=== PATIENT | male | born 1935 | race Caucasian/White ===

== ENCOUNTER → 2016-06-03 | Outpatient (CLI) | payer OTHER | LOC: BHFA 13:15 | PROVIDERS: ATTEND Internal Medicine | DX: I48.91 Unspecified atrial fibrillation (principal); I10 Essential (primary) hypertension ==

== ENCOUNTER → 2016-06-10 | Outpatient (CLI) | payer OTHER | LOC: FCPNEURO 21:00 | PROVIDERS: ATTEND Psychiatry & Neurology Sleep Medicine | DX: G47.33 Obstructive sleep apnea (adult) (pediatric) (principal) ==

== ENCOUNTER → 2016-07-12 | Outpatient (CLI) | payer OTHER | LOC: FCPNEURO 21:30 | PROVIDERS: ATTEND Psychiatry & Neurology Sleep Medicine | DX: G47.33 Obstructive sleep apnea (adult) (pediatric) (principal); G47.39 Other sleep apnea ==

== ENCOUNTER → 2018-04-30 | Outpatient (CLI) | payer OTHER | LOC: FIMAGING 14:41 | PROVIDERS: ATTEND Internal Medicine Cardiovascular Disease | DX: I48.91 Unspecified atrial fibrillation (principal); R06.02 Shortness of breath; I50.9 Heart failure, unspecified ==

== ENCOUNTER 2018-05-03 06:08 | Day surgery (SDC) | payer OTHER ==
[2018-05-03] MEDS ORDERED: diphenhydrAMINE 25 MG CAP PO ONE (06:13)
[2018-05-03] MEDS ORDERED: ASPIRIN EC 325 MG TAB PO ONE (06:13)
[2018-05-03] MEDS ORDERED: NS 1,000 ML IV ONE (06:13)
[2018-05-03] MEDS ORDERED: DIAZEPAM 5 MG TAB PO ONE (06:13)
[2018-05-03] MEDS ORDERED: FAMOTIDINE 20 MG TAB PO ONE (06:13)
[2018-05-03] MEDS ORDERED: LIDOCAINE 1% 300 MG/30 ML SDV ONE (06:52)
[2018-05-03] MEDS ORDERED: fentaNYL 100 MCG/2 ML INJ ONE (06:52)
[2018-05-03] MEDS ORDERED: IOPAMIDOL (ISOVUE-370) 150 ML BTL IV ONE (06:52)
[2018-05-03] MEDS ORDERED: METOPROLOL TARTRATE 5 MG/5 ML INJ ONE (06:52)
[2018-05-03] MEDS ORDERED: MIDAZOLAM 2 MG/2 ML VIAL ONE (06:52)
[2018-05-03] MEDS ORDERED: CLOPIDOGREL BISULFATE 75 MG TAB ONE (06:53)
[2018-05-03 06:56] LABS: INR 1.24 (0.83-1.16); PROTIME(PATIENT) 15.8 SEC (12.0-15.0)
[2018-05-03] MEDS ORDERED: CLOPIDOGREL BISULFATE 75 MG TAB PO ONE (07:00)
[2018-05-03 07:03] VITALS: BP 171/104
--- NOTE | 2018-05-03 07:08 | PDPROPOC ---
Sedation Plan of Care Sedation Plan of Care: mental status noted, patient educated of risks, benefits , alternatives, patient can tolerate sedation ASA Classification: ASA 2 Planned drugs: fentanyl, midazolam Mallampati Score: Class 1 Mallampati Reference Image: Patient passed 3-3-2 rule?: Yes
--- NOTE | 2018-05-03 07:09 | PDHPUP ---
History & Physical Update H&P update statement: This history and physical update is based on an assessment of the patient which was completed after admission or registration (within 24 hours), but prior to the surgery/procedure. H&P update: H&P reviewed & patient examined, no change in patient's condition since H&P completed
[2018-05-03 07:12] LABS: PLATELET COUNT 113 10^3/uL (150-400)
[2018-05-03] MEDS ORDERED: METOPROLOL TARTRATE 5 MG/5 ML INJ IV ONE (07:15)
[2018-05-03] MEDS ORDERED: hydrALAZINE 20 MG/ML VIAL ONE (07:24)
[2018-05-03] MEDS ORDERED: BIVALIRUDIN 250 MG/5 ML VIAL IV ONE (07:50)
[2018-05-03] MEDS ORDERED: ADENOSINE 90 MG/30 ML VIAL IV ONE (07:51)
[2018-05-03] MEDS ORDERED: NITROGLYCERIN 1,500 MCG/15 ML VIAL MISC ONE (07:51)
[2018-05-03] MEDS ORDERED: NITROGLYCERIN 0.4 MG BTL SL PRN (08:21)
[2018-05-03] MEDS ORDERED: ONDANSETRON 4 MG/2 ML VIAL IVP PRN (08:21)
[2018-05-03] MEDS ORDERED: OXYCODONE/APAP 5/325 TAB PO PRN (08:21)
[2018-05-03] MEDS ORDERED: HYDROCODONE/APAP 5/325 TAB PO PRN (08:21)
[2018-05-03] MEDS ORDERED: ATROPINE SULFATE 1 MG/10 ML SYR IVP PRN (08:21)
--- NOTE | 2018-05-03 10:10 | ECHO ---
[email or web address] [address] [address] Main: [phone] Fax: Transthoracic Echocardiogram Name: BRIAN MONAE MR#: [id number] Study Date: 05/03/2018 Study Time: 08:56 AM Date of : 1935 Age: 82 year(s) Height: 188 cm (74 in.) Weight: 95.71 kg (211 lb.) BSA: 2.22 m2 Gender: Male Examination: Echo Indication: Eval LV function, previous echo 06/03/16 Image Quality: Fair Contrast: Requested by: Rob Britt BP: 148 mmHg/86 mmHg Heart Rate: Rhythm: Indication: Eval LV function, previous echo 06/03/16 Procedure Staff Safety And Health Consultant: Mona Garcia RDCS Reading Physician: Rob Britt MD Requesting Provider: Conclusions: Borderline concentric LV hypertrophy. Normal global systolic LV function. The ejection fraction is estimated to be 65-70 %. Mild mitral valve regurgitation is present. Trivial to mild aortic valve regurgitation. Mild tricuspid regurgitation is present. RVSP is 52mmHG.. Mildly dilated ascending aorta measuring 4.4 cm. Measurements: Chambers Valvular Assessment AV/MV Valvular Assessment TV/PV Normal Normal Normal Name Value Range Name Value Range Name Value Range Ao Tianna (MM): 4.7 cm (2.2 cm-3.7 AV Vmax: 1.11 m/s (1 m/s-1.7 TR Vmax: 3.43 mm/s ( - ) cm) m/s) TR PGmax: 47 mmHg ( - ) IVSd (2D): 0.9 cm (0.6 cm-1.1 AV meanP mmHg ( - ) syst. PAP: 52 mmHg ( - ) cm) MV E Vmax: 0.91 m/s ( - ) LVDd (2D): 4.8 cm (4.2 cm-5.9 MV A Vmax: 0.30 m/s ( - ) cm) MV E/A: 3.03 ( - ) LVPWd (2D): 0.9 cm (0.6 cm-1 cm) LVEF (MOD4): 79 % (>=55 %) EF Range: 65-70 % Continued Measurements: Chambers Valvular Assessment AV/MV Valvular Assessment TV/PV Name Value Name Value Name Value LADs: 5.6 cm MV E' Septal: 0.09 m/s CVP (est.): 5 mmHg Patient: BRIAN MONAE Study Date: 05/03/2018 Page 1 of 2 08:56 AM LADs Lon.2 cm MV E/E' Septal: 10.30 LA Area: 33.0 cm2 MV E/E' Lateral: 12.00 LA Volume: 124 ml LA Volume Index: 55.9 ml/m2 Additional Vessels Name Value Ao Ascendin.4 cm Findings: Left Ventricle: Normal size left ventricle. Borderline concentric LV hypertrophy. Normal global systolic LV function. The ejection fraction is estimated to be 65-70 %. No regional wall motion abnormality. Diastolic dysfunction is indeterminate.. Right Ventricle: Normal size right ventricle. Left Atrium: The left atrium is severely dilated. Right Atrium: The right atrium is moderately dilated. Mitral Valve: The mitral valve is normal in appearance and function. Mild mitral valve regurgitation is present. Aortic Valve: Minimal aortic cusp calcification is noted. Mild aortic cusp calcification is noted. Trivial to mild aortic valve regurgitation. Tricuspid Valve: The tricuspid valve is normal in appearance and function. Mild tricuspid regurgitation is present. The pulmonary artery pressure is mildly increased. RVSP is 52mmHG.. Pulmonic Valve: Pulmonary valve not well visualized. Aorta: The aorta is normal. Mildly dilated ascending aorta measuring 4.4 cm. Pericardium: Trivial anterior pericardial effusion. (No Signature Object) Patient: BRIAN MONAE Study Date: 05/03/2018 Page 2 of 2 08:56 AM [id number]
--- NOTE | 2018-05-03 11:05 | CPIP ---
DATE OF PROCEDURE: 05/03/2018 INDICATION FOR PROCEDURE: Heart failure. PROCEDURE: 1. Nonselective right groin sheathogram. 2. 7-Monegasque sheath right common femoral vein. 3. Bilateral coronary angiography. 4. Left heart catheterization. 5. Left ventriculogram. 6. Right heart catheterization with [place]Dolores catheter. HISTORY: Briefly, this is an 82-year-old male with history of atrial fibrillation, hypertension, chr onic renal insufficiency who had been having significant worsening shortness of breath over the last week. The patient had an x-ray as an outpatient that showed what appeared to be heart failure, which appeared to show pulmonary edema. The patient was started on Lasix and felt dramatically better. G iven these findings, the patient consented for right and left heart catheterization. DESCRIPTION OF PROCEDURE: After informed consent, the patient was brought to [facility] where the right flo in was prepped and draped in sterile fashion. Using lidocaine, a short 6-Monegasque sheath in the right common femoral artery verified angiographically. 7-Monegasque sheath in the right common femoral vein. [place]Dolores catheter was then advanced. Wedge pressure mean of 26, A-wave of 29, V-wave of 38, PA pres sure systolic was 51, diastolic 19, mean of 33, RV pressure 48, diastolic 7, end of 12. RA pressure mean of 10 , A-wave 12, V-wave 14. Cardiac output was measured to be 7.8 by Dagmar with a cardiac inde x of 3.4. AO sat 92%. PA sat was 69%. [place]Dolores catheter was then removed. A JL4 catheter was advanced to the left coronary artery. Images of the left coronary artery revealed large left main. Circumflex system was healthy, giving off a marginal 1 in its midbody and a margin al 2 distally, which both were healthy and free of disease. There was a ramus intermedius, which was a medium-sized vessel, which had at least 60% disease in its proximal aspect. The LAD was a long ve ssel, which wrapped around the apex. The LAD had an area of 30% to 40% calcified disease in its mid body before the takeoff of a diagonal artery. Distal LAD was widely patent. 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 After these images were obtained, the JL4 catheter was removed. The JR4 catheter was advanced to the right coronary artery. Images of the right coronary artery revealed normal ostial RCA. Proximal RC A had a napkin ring 30% to 40% lesion. The distal RCA had what appeared to be at least a 60% lesion going to a healthy RPDA and RPLS. After these images were obtained, the JR4 catheter was removed. The pigtail catheter was advanced to left ventricle. EDP is 20 mmHg. The left ventriculogram in the BLANCA projection showed an EF of approximately 50% with low-normal ventricular function. There was no pullback gradient between the LV and the aorta. Pigtail catheter was removed. INTERVENTIONAL REPORT: At this time for better assessment of the RCA, which clearly had the most con cerning area of disease, we decided to perform FFR. The patient was started on an Angiomax bolus and drip. A JR4 6-Monegasque guide catheter was zeroed in the aorta with the FFR wire. The JR4 catheter wa s then advanced into the right coronary artery. The FFR wire was advanced past the lesion in questio n in the distal RCA and placed in the RPDA. FFR was then performed. The baseline FFR before adenosi ne infusion was approximately 0.98. After adenosine infusion at 140 mcg/kg per minute, the FFR measu red at 0.89. This was then repeated after 2 minutes at a higher dose of 170 mcg. This revealed once again an FFR of 0.89 at its lowest. At this time, the angiographic images were obtained, which show ed no dissection or perforation of the right coronary artery. The wire was removed. The guide tessa ter was removed over an 0.035 wire. Right groin was closed 6-Monegasque Angio-Seal. Patient tolerated t he procedure well with no complications. IMPRESSION: 1. Moderate coronary artery disease namely in the form of proximal ramus intermedius ranging up to 6 0% disease, as well as distal right coronary artery disease measuring at least 60% disease, which was estimated at being normal by fractional flow reserve at 0.89. 2. Mild mid left anterior descending disease at 30% to 40% disease. 3. Normal left circumflex disease. 4. Moderate pulmonary hypertension. 5. Low-normal ejection fraction. PLAN: The patient's underlying issues appear to be revolving around uncontrolled hypertension. Give n his a longstanding history of hypertension and chronic renal insufficiency, will institute stronger antihypertensive regimen. We will also check an echocardiogram later this morning. The patient michaelle l be discharged home this morning. I have also instructed the patient to hold off on any further Las ix/KCl as his creatinine did bump and there may have been over-diuresis over the last 3 days. Furthe r orders following clinical correlation. /[id number]/MODL
--- NOTE | 2018-05-05 06:32 | CPEKG ---
Test Reason : OPEN Blood Pressure : / mmHG Vent. Rate : 076 BPM Atrial Rate : 109 BPM P-R Int : 174 ms QRS Dur : 113 ms QT Int : 416 ms P-R-T Axes : 000 -48 055 degrees QTc Int : 468 ms Atrial fibrillation LAD, consider left anterior fascicular block Left ventricular hypertrophy Confirmed by Sal Amato ([id number]) on 05/05/2018 6:32:08 AM Referred By: Confirmed By:Sal Amato
--- NOTE | 2018-05-06 14:28 | CPEKG ---
Test Reason : OPEN Blood Pressure : / mmHG Vent. Rate : 067 BPM Atrial Rate : 200 BPM P-R Int : 165 ms QRS Dur : 111 ms QT Int : 416 ms P-R-T Axes : 000 -50 047 degrees QTc Int : 439 ms Atrial fibrillation Incomplete left bundle branch block Left ventricular hypertrophy Confirmed by Sal Amato ([id number]) on 05/06/2018 2:28:22 PM Referred By: Confirmed By:Sal Amato
== END 2018-05-03 12:43 | disposition home or self-care (01) ==
LOC: FCATH 06:08
PROVIDERS: ATTEND Internal Medicine Cardiovascular Disease
DX: I25.10 Atherosclerotic heart disease of native coronary artery without angina pectoris (principal); I27.20 Pulmonary hypertension, unspecified; I48.91 Unspecified atrial fibrillation; I12.9 Hypertensive chronic kidney disease with stage 1 through stage 4 chronic kidney disease, or unspecified chronic kidney disease; R06.00 Dyspnea, unspecified; I51.7 Cardiomegaly; N18.9 Chronic kidney disease, unspecified; N40.1 Benign prostatic hyperplasia with lower urinary tract symptoms; R35.1 Nocturia; E78.5 Hyperlipidemia, unspecified; E11.22 Type 2 diabetes mellitus with diabetic chronic kidney disease; G47.33 Obstructive sleep apnea (adult) (pediatric); E21.1 Secondary hyperparathyroidism, not elsewhere classified; Z79.01 Long term (current) use of anticoagulants; Z86.718 Personal history of other venous thrombosis and embolism; Z82.49 Family history of ischemic heart disease and other diseases of the circulatory system
CPT/HCPCS: 93005; 93306; 93460; 93571; C1769; C1887; C1760; J0153; J0360; J0583; J1644; J2250; J3010; Q9967

== ENCOUNTER 2018-05-03 19:35 | Observation (INO) | payer OTHER ==
--- NOTE | 2018-05-03 19:41 | EDPHY ---
H & P Time Seen by Provider: 05/03/18 19:40 HPI/ROS: CHIEF COMPLAINT: Groin hematoma following cardiac catheterization HISTORY OF PRESENT ILLNESS: The patient presents to the ED after he developed swelling in his right groin following cardiac catheterization today. The patient's reports palpating a golf ball size mass in the right inguinal area. She applied direct pressure and the mass resolved. The patient denies any acute pain, numbness or weakness in the extremity. The patient underwent an angiogram for evaluation of worsening heart failure. He did not have any stents placed. The patient did resume his regular Coumadin dose this evening. The patient currently denies any acute chest pain or shortness of breath. REVIEW OF SYSTEMS: A comprehensive 10 point review of systems is otherwise negative aside from elements mentioned in the history of present illness. Source: Patient - Personal History Current Tetanus Diphtheria and Acellular Pertussis (TDAP): Yes - Medical/Surgical History Other PMH: Past medical history: Congestive heart failure, renal disease, cardiac catheterization today - Social History Smoking Status: Never smoked - Physical Exam Exam: General Appearance: Alert, no distress Eyes: Pupils equal and round no pallor or injection ENT, Mouth: Mucous membranes moist Respiratory: There are no retractions, lungs are clear to auscultation Cardiovascular: Regular rate and rhythm Gastrointestinal: Abdomen is soft and nontender, no masses, bowel sounds normal Neurological: Normal sensory exam noted in the right lower extremity Skin: Warm and dry, no rashes Musculoskeletal: Neck is supple nontender Extremities: Small groin hematoma noted in the right inguinal area, 2+ dorsalis pedis and posterior tibial pulses noted, 2+ femoral pulse Psychiatric: Patient is oriented X 3, there is no agitation Constitutional: Initial Vital Signs Temperature (C) 36.6 C 05/03/18 19:47 Heart Rate 61 05/03/18 19:47 Respiratory Rate 18 05/03/18 19:47 Blood Pressure 166/87 H 05/03/18 19:47 O2 Sat (%) 91 L 05/03/18 19:47 O2 Delivery Mode Room Air Allergies/Adverse Reactions: No Known Allergies Allergy (Unverified 05/03/18 19:51) Home Medications: Medication Instructions Recorded Aspirin [Aspirin 81mg (OTC)] 81 mg PO DAILY 01/02/12 Diltiazem Cd [Cardizem ER 180 MG 180 mg PO DAILY 01/02/12 (RX)] WARFARIN SODIUM [COUMADIN] 10 mg PO SUTUTHSA@1800 01/02/12 Warfarin Sodium [Coumadin 5MG (*)] 12.5 mg PO MOWEFR@16 01/02/12 Cholecalciferol Vit D3 [Vitamin D3 5,000 units PO DAILY 05/03/18 (*)] Furosemide [Lasix 40 MG (*)] 40 mg PO Q2D 05/03/18 Labetalol HCl [Trandate 200 mg (*)] 200 mg PO DAILY 05/03/18 Labetalol HCl [Trandate 200 mg (*)] 200 mg PO DAILY@1800 05/03/18 Lisinopril [Zestril 20 mg (*)] 20 mg PO DAILY@18 05/03/18 Pioglitazone HCl [Actos] 30 mg PO DAILY 05/03/18 Potassium Cl [Klor-Con] 10 meq PO Q2D 05/03/18 Tamsulosin HCl [Flomax 0.4 MG (*)] 0.4 mg PO DAILY@18 05/03/18 glipiZIDE [Glipizide] 5 mg PO DAILY@05/03/18 Medical Decision Making ED Course/Re-evaluation: Patient presents to the ED with a right groin hematoma. He was taken for an ultrasound which demonstrates a small pseudoaneurysm. The patient did have direct pressure applied in the emergency department for 15 min by an home appliance technician. I consulted with Dr. Jarrett who is on-call for Cardiology. Plan will be to admit the patient to the hospital this evening and repeat his ultrasound tomorrow to see if the pseudoaneurysm has closed. Differential Diagnosis: Differential diagnosis considered includes pseudoaneurysm, groin hematoma, neurovascular injury Departure - Departure Disposition: [facility] Inpatient Acute Clinical Impression: Pseudoaneurysm following procedure Condition: Good
[2018-05-03] MEDS ORDERED: ONDANSETRON 4 MG/2 ML VIAL IVP PRN (22:30)
[2018-05-03] MEDS ORDERED: ACETAMINOPHEN 325 MG TAB PO PRN (22:30)
[2018-05-03] MEDS ORDERED: ONDANSETRON DISINTEGRATING 4 MG TAB PO PRN (22:30)
--- NOTE | 2018-05-03 22:43 | CPEKG ---
Test Reason : OPEN Blood Pressure : / mmHG Vent. Rate : 067 BPM Atrial Rate : 200 BPM P-R Int : 165 ms QRS Dur : 111 ms QT Int : 416 ms P-R-T Axes : 000 -50 047 degrees QTc Int : 439 ms Atrial fibrillation Incomplete left bundle branch block Left ventricular hypertrophy Confirmed by Jimi Godoy ([id number]) on 05/03/2018 10:43:09 PM Referred By: Confirmed By:Jimi Godoy
--- NOTE | 2018-05-03 22:43 | CPEKG ---
Test Reason : OPEN Blood Pressure : / mmHG Vent. Rate : 071 BPM Atrial Rate : 000 BPM P-R Int : 063 ms QRS Dur : 114 ms QT Int : 419 ms P-R-T Axes : 000 -54 057 degrees QTc Int : 456 ms Atrial fibrillation LAD, consider left anterior fascicular block Borderline T wave abnormalities Confirmed by Jimi Godoy ([id number]) on 05/03/2018 10:43:14 PM Referred By: Confirmed By:Jimi Godoy
[2018-05-04 05:53] LABS: PLATELET COUNT 113 10^3/uL (150-400)
[2018-05-04 05:58] LABS: INR 1.34 (0.83-1.16); PROTIME(PATIENT) 16.8 SEC (12.0-15.0)
[2018-05-04] MEDS ORDERED: ATORVASTATIN CALCIUM 40 MG TAB PO ONE (08:30)
[2018-05-04] MEDS ORDERED: LABETALOL HCL 200 MG TAB PO ONE (08:45)
[2018-05-04] MEDS ORDERED: DILTIAZEM CD 180 MG CAP PO SCH (09:00)
[2018-05-04] MEDS ORDERED: ASPIRIN 81 MG CHEWABLE TAB PO SCH (09:00)
[2018-05-04] MEDS ORDERED: PIOGLITAZONE HCL 15 MG TAB PO SCH (09:00)
[2018-05-04] MEDS ORDERED: LABETALOL HCL 200 MG TAB PO SCH ×3 (09:00→18:00)
[2018-05-04] MEDS ORDERED: CHOLECALCIFEROL VIT D3 2,000 UNITS TAB/CAP PO SCH (09:00)
[2018-05-04] MEDS ORDERED: LISINOPRIL 20 MG TAB PO SCH ×2 (09:30→18:00)
--- NOTE | 2018-05-04 10:03 | ASMTCMCOM ---
CM Note CM Note Notes: Pt is a 82 y/o man admitted for a groin hematoma following a cardiac cath. Pt went to surgery to have the pseudoaneurysm repaired. Pt will most likely d/c independent when medically. No therapies ordered at this time. CM available for needs. Plan: Independent Date Signed: 05/04/2018 10:03 AM Electronically Signed By:CHINYERE Escobedo
[2018-05-04] MEDS ORDERED: LIDOCAINE 1% 300 MG/30 ML SDV ONE (12:57)
[2018-05-04] MEDS ORDERED: THROMBIN (BOVINE) 5,000 UNIT VIAL TP ONE (12:57)
[2018-05-04 15:25] VITALS: BP 150/95
--- NOTE | 2018-05-04 16:16 | GDS ---
DISCHARGE DIAGNOSES: 1. Right groin pseudoaneurysm status post ultrasound-guided femoral stop followed by thrombin inject ion. 2. Moderate coronary artery disease found on left heart catheterization from 05/03/2018. 3. Moderate pulmonary hypertension. 4. Permanent atrial fibrillation. 5. Hypertension. 6. Chronic kidney disease. 7. Type 2 diabetes mellitus. 8. Chronic anticoagulation. PROCEDURES: 1. 05/03/2018, right and left heart catheterization. 2. 05/03/2018, right groin ultrasound showing subcentimeter pseudoaneurysm. 3. 05/04/2018, ultrasound-guided femoral stop followed by thrombin injection. CONSULTATION: Dr. Naina Edwards of Interventional Radiology. BRIEF HISTORY: Please see dictated H and P from our office for complete details. This is an 82-year -old male who presented with worsening dyspnea on exertion. He proceeded to left and right heart cat heterization on 05/03/2018. He was discharged to home after no intervention was undertaken. While a t dinner, he noted a groin pain and his noted a golf ball size inguinal area mass. She applied direct pressure and EMS was called. Upon arrival to the ED, a groin ultrasound confirmed the presenc e of a pseudoaneurysm. He still had some flow into the neck of the pseudoaneurysm in the morning. H e proceeded to ultrasound-guided femoral stop, but this did not diminish the flow into the neck of th e pseudoaneurysm. He therefore had a thrombin injection performed. He is being discharged to home w ith followup instructions for an ultrasound tomorrow. HOSPITAL COURSE BY PROBLEM: 1. Pseudoaneurysm. He has proceeded to thrombin injection. His warfarin will be held for another d ay and he will resume the warfarin on 05/06/2018. 2. Moderate coronary artery disease. We will plan to have him follow up with Dr. Britt in 1 week' s time. 3. Shortness of breath. This is likely multifactorial. He will need further cardiac and pulmonary workup in the outpatient setting. PHYSICAL EXAMINATION: VITAL SIGNS: BP of 150/95, heart rate 70, respirations 16, O2 saturation 97% on room air. Temp of 97.7 degrees Fahrenheit. GENERAL: He is a pleasant male in no apparent distres s. HEENT: Normocephalic, atraumatic. HEART: Irregularly irregular. LUNGS: Clear. Right groin s ite is soft with mild ecchymosis present. CBC with WBC 4.15, hemoglobin 11.7, hematocrit 37.2, platelet count 113. INR 1.34. BMP with sodium 140, potassium 4.2, chloride 112, CO2 23, BUN 36, creatinine 1.5, glucose 133, total cholesterol of 1 42, triglycerides 123, LDL of 88, HDL of 29. RESULTS PENDING: None. DIET: Per previous. ACTIVITY: Groin precautions reviewed. DISCHARGE MEDICATIONS: Please see med reconciliation. He is to continue his labetalol, atorvastatin , glipizide, tamsulosin, pioglitazone, lisinopril, labetalol, diltiazem, vitamin D3, aspirin. He is to hold warfarin until 05/06/2018. He is to change his Lasix with potassium to every other day. DISCHARGE INSTRUCTIONS: 1. Discharged to home today with groin precautions. 2. Follow up with Dr. Britt in 1 week's time. /[id number]/MODL
[2018-05-04] MEDS ORDERED: TAMSULOSIN HCL 0.4 MG CAP PO SCH (18:00)
[2018-05-04] MEDS ORDERED: glipiZIDE 5 MG TAB PO SCH (18:00)
[2018-05-05] MEDS ORDERED: POTASSIUM CL 10 MEQ TAB PO SCH (09:00)
== END 2018-05-04 15:51 | disposition home or self-care (01) ==
LOC: EDUNIT# → F3E 22:44
PROVIDERS: ADMIT Internal Medicine; ATTEND Internal Medicine Cardiovascular Disease
DX: I97.630 Postprocedural hematoma of a circulatory system organ or structure following a cardiac catheterization (principal); I25.10 Atherosclerotic heart disease of native coronary artery without angina pectoris; I27.20 Pulmonary hypertension, unspecified; I48.2 Chronic atrial fibrillation; I12.9 Hypertensive chronic kidney disease with stage 1 through stage 4 chronic kidney disease, or unspecified chronic kidney disease; N18.9 Chronic kidney disease, unspecified; E11.22 Type 2 diabetes mellitus with diabetic chronic kidney disease; Z79.01 Long term (current) use of anticoagulants
CPT/HCPCS: 36002; 76936; 76942; 93005; 99285; G0378

== ENCOUNTER → 2018-05-05 | Outpatient (CLI) | payer OTHER | LOC: FIMAGING 10:03 | PROVIDERS: ATTEND Radiology Diagnostic Radiology | DX: I82.402 Acute embolism and thrombosis of unspecified deep veins of left lower extremity (principal) ==

== ENCOUNTER → 2018-06-15 | Outpatient (CLI) | payer OTHER | LOC: FIMAGING 12:01 | PROVIDERS: ATTEND Internal Medicine | DX: R16.1 Splenomegaly, not elsewhere classified (principal); I50.9 Heart failure, unspecified; N28.1 Cyst of kidney, acquired ==

== ENCOUNTER 2018-09-22 06:15 | Day surgery (SDC) | payer OTHER ==
[2018-09-22] MEDS ORDERED: ceFAZolin 2 GM/DEXTROSE 100 ML IV ONE (06:30)
[2018-09-22] MEDS: LR 1,000 ML IV ONE ×2 (07:15→08:41)
[2018-09-22] MEDS ORDERED: BUPIVACAINE 0.5% 30 ML SDV ONE (07:18)
[2018-09-22] MEDS ORDERED: HEPARIN 1000 UNIT/1 ML MDV ONE (07:18)
[2018-09-22] MEDS ORDERED: MIDAZOLAM 2 MG/2 ML VIAL IVP ONE (07:28)
--- NOTE | 2018-09-22 07:30 | PDANEPAE ---
ANE History of Present Illness port ANE Past Medical History - Cardiovascular History Hx Hypertension: Yes Hx Arrhythmias: Yes Hx Chest Pain: No Hx Coronary Artery / Peripheral Vascular Disease: No Hx CHF / Valvular Disease: Yes Hx Palpitations: No Cardiovascular History Comment: chf 04/2018. afib. hx of DVT. hyperlipidemia - Pulmonary History Hx COPD: No Hx Asthma/Reactive Airway Disease: No Hx Recent Upper Respiratory Infection: No Hx Oxygen in Use at Home: No Hx Sleep Apnea: Yes Sleep Apnea Screening Result - Last Documented: Positive Pulmonary History Comment: mary positive- uses cpap - Neurologic History Hx Cerebrovascular Accident: No Hx Seizures: No Hx Dementia: No - Endocrine History Hx Diabetes: Yes Hypothyroid: No Hyperthyroid: No Obesity: mild Endocrine History Comment: type 2 - Renal History Hx Renal Disorders: Yes Renal History Comment: CKD. ruptured kidney and kidney failure in 2007- but has resolved - Liver History Hx Hepatic Disorders: No - Neurological & Psychiatric Hx Hx Neurological and Psychiatric Disorders: No - Cancer History Hx Cancer: Yes Cancer History Comment: basal cell removed from nose- mohs procedure - Congenital Disorder History Hx Congenital Disorders: No - GI History GERD: no Hx Gastrointestinal Disorders: No Gastrointestinal History Comment: 1/yr reflux - Other Health History Other Health History: anemia. arthritis - Chronic Pain History Chronic Pain: Yes (bilateral knee arthritis) - Surgical History Prior Surgeries: 05/05/18 psuedoaneurysm repair with Jerry. 05/03/18 cardiac cath with Luiza. 05/04/12 ventral hernia repair with Adrian. 11/21/09 l4-5 herniated disc excision with Melvin. 08/09/09 left ureteroscopy for stone removal with Heidi. 06/06/09 byron with Melvin. bilateral inguinal hernia repairs 2002 ANE Review of Systems Review of Systems: - Exercise capacity Exercise capacity: <4 METS METS (RN): 3 METS ANE Patient History - Allergies Allergies/Adverse Reactions: No Known Allergies Allergy (Verified 09/21/18 13:25) - Home Medications Home Medications: Aspirin [Aspirin 81mg (*)] 01/02/12 [Last Taken 08/25/18] Diltiazem Cd [Cardizem ER Q24hr] 01/02/12 [Last Taken 09/22/18] WARFARIN SODIUM [COUMADIN] 01/02/12 [Last Taken 09/15/18] Cholecalciferol Vit D3 [Vitamin D3 (*)] 05/03/18 [Last Taken 09/21/18] Furosemide [Lasix 40 MG (*)] Q2D 05/03/18 [Last Taken 09/20/18] Lisinopril [Zestril 20 mg (*)] 05/03/18 [Last Taken 09/21/18] Pioglitazone HCl [Actos] 05/03/18 [Last Taken 09/21/18] Potassium Cl [Klor-Con 10 meq (RX)] Q2D 05/03/18 [Last Taken 05/02/18] Tamsulosin HCl [Flomax 0.4 MG (*)] 05/03/18 [Last Taken 09/21/18] Atorvastatin Calcium [Lipitor 40 mg (*)] 05/04/18 [Last Taken 09/22/18] Allopurinol [Zyloprim] 300 mg PO DAILY 09/22/18 [Last Taken 09/22/18] - NPO status NPO Status: no food or drink >8 hours NPO Since - Liquids (Date): 09/21/18 NPO Since - Liquids (Time): 19:00 NPO Since - Solids (Date): 09/21/18 NPO Since - Solids (Time): 19:00 - Smoking Hx Smoking Status: Never smoked - Family Anes Hx Family Hx Anesthesia Complications: none ANE Labs/Vital Signs - Labs Result Diagrams: 09/22/18 06:50 - Vital Signs Blood Pressure: 155/85 Heart Rate: 85 Respiratory Rate: 16 O2 Sat (%): 94 Height: 190.5 cm Weight: 96.4 kg ANE Physical Exam - Airway Mallampati Score: Class 2 Mouth exam: normal dental/mouth exam - Pulmonary Pulmonary: no respiratory distress - Cardiovascular Cardiovascular: regular rate and rhythym - ASA Status ASA Status: III ANE Anesthesia Plan Anesthesia Plan: GA with mask, MAC
[2018-09-22] MEDS ORDERED: fentaNYL 100 MCG/2 ML INJ ONE (07:36)
[2018-09-22] MEDS ORDERED: DEXAMETHASONE 4 MG/ML VIAL ONE (07:37)
[2018-09-22] MEDS ORDERED: ONDANSETRON 4 MG/2 ML VIAL ONE (07:37)
[2018-09-22] MEDS ORDERED: PROPOFOL/EMULSION 500 MG/50 ML BOTTLE IV ONE (07:37)
[2018-09-22] MEDS ORDERED: LIDOCAINE 2% 5 ML SDV ONE (07:37)
[2018-09-22 07:38] LABS: INR 1.14 (0.83-1.16); PROTIME(PATIENT) 14.1 SEC (12.0-15.0)
[2018-09-22] MEDS ORDERED: NALOXONE HCL 0.4 MG/ML INJ IVP PRN (08:27)
[2018-09-22] MEDS ORDERED: ALBUTEROL 3 ML DEYVIAL IH PRN (08:27)
[2018-09-22] MEDS ORDERED: ONDANSETRON 4 MG/2 ML VIAL IVP PRN (08:27)
[2018-09-22] MEDS ORDERED: fentaNYL 100 MCG/2 ML INJ IVP PRN (08:27)
--- NOTE | 2018-09-22 08:28 | POSTOPPROG ---
Post Op Note Date of Operation: 09/22/18 Surgeon: Shanta Brown Anesthesiologist: tenzin Anesthesia: IV Sedation Pre-op Diagnosis: lymphoma Post-op Diagnosis: same Indication: 83 yo with lymphoma Procedure: R US guided IJ port Findings: tip svc Inf/Abcess present in the surg proc area at time of surgery?: No EBL: Minimal Specimen(s): none
--- NOTE | 2018-09-22 08:35 | POSTANESTH ---
Post Anesthetic Evaluation Cardiovascular Status: Normal, Stable Respiratory Status: Normal, Stable Level of Consciousness/Mental Status: Can Participate in Eval Pain Control: Adequate, Prn Tx Ordered Nausea/Vomiting Control: Adequate, Prn Tx Ordered Complications Possibly Related to Anesthesia: None Noted
[2018-09-22 09:25] VITALS: BP 139/85
== END 2018-09-22 10:25 | disposition home or self-care (01) ==
LOC: FSGY 06:15
PROVIDERS: ATTEND Surgery
DX: Z45.2 Encounter for adjustment and management of vascular access device (principal); C83.17 Mantle cell lymphoma, spleen; I10 Essential (primary) hypertension; I48.91 Unspecified atrial fibrillation; E78.5 Hyperlipidemia, unspecified; Z86.718 Personal history of other venous thrombosis and embolism; G47.33 Obstructive sleep apnea (adult) (pediatric); Z85.828 Personal history of other malignant neoplasm of skin
CPT/HCPCS: C1788; J0690; J1100; J1642; J2250; J2405; J2704; J3010